=== PATIENT | female | born 1980 | race African-American/Black ===

== ENCOUNTER 2024-10-09 10:04 | Outpatient (CLI) | payer OTHER | END 2024-10-09 10:05 | disposition home or self-care (01) | LOC: CSHSLEEP 10:04 | PROVIDERS: ATTEND Internal Medicine | DX: G47.30 Sleep apnea, unspecified (principal); R53.83 Other fatigue; R06.83 Snoring; E66.9 Obesity, unspecified; Z68.28 Body mass index [BMI] 28.0-28.9, adult; G47.10 Hypersomnia, unspecified | CPT/HCPCS: 95810 ==